=== PATIENT | female | born 1950 | race Caucasian/White ===

== ENCOUNTER 2021-05-16 09:00 | Emergency (ER) | payer MEDICARE, OTHER ==
[2021-05-16 10:23] LABS: HEMOGLOBIN 15.1 gm/dl (12.3-15.3); RED BLOOD COUNT 5.51 M/UL (4.00-5.10); WHITE BLOOD COUNT 11.3 K/UL (4.5-11.0)
[2021-05-16 10:48] LABS: BUN/CREATININE RATIO 25 (0-10)
[2021-05-16] MEDS ORDERED: FLAGYL375 MG PO (15:09)
[2021-05-16] MEDS ORDERED: ZOFRAN4 MG PO (15:09)
[2021-05-16] MEDS ORDERED: K-TAB ER10 MEQ PO (15:09)
== END 2021-05-16 16:15 | disposition home or self-care (01) ==
LOC: ER1 09:00
PROVIDERS: Physician Assistant
DX: R10.9 Unspecified abdominal pain (principal); R10.816 Epigastric abdominal tenderness; E86.0 Dehydration; E87.6 Hypokalemia; E78.5 Hyperlipidemia, unspecified; I10 Essential (primary) hypertension; Z90.710 Acquired absence of both cervix and uterus
CPT/HCPCS: 80053; 81001; 82150; 82550; 82553; 83605; 83690; 83874; 84484; 85025; 93005; 96374; 96375; 99284; J2270; J2405; J7030; Q9967

== ENCOUNTER 2021-05-23 18:18 | Inpatient (IN) | payer MEDICARE, OTHER ==
[~2021-05-23] VITALS: Ht 149.9 cm; Wt 62.6 kg
[~2021-05-23 18:18] MED LIST: FLAGYL375 MG PO; K-TAB ER10 MEQ PO; METRONIDAZOLE500 MG PO; ZOFRAN4 MG PO
[2021-05-23 19:44] LABS: HEMOGLOBIN 13.1 gm/dl (12.3-15.3); RED BLOOD COUNT 4.98 M/UL (4.00-5.10); WHITE BLOOD COUNT 11.5 K/UL (4.5-11.0)
[2021-05-23 19:53] LABS: BUN/CREATININE RATIO 19 (0-10)
[2021-05-24 06:54] LABS: HEMOGLOBIN 12.7 gm/dl (12.3-15.3); RED BLOOD COUNT 4.82 M/UL (4.00-5.10)
[2021-05-24 06:55] LABS: WHITE BLOOD COUNT 4.4 K/UL (4.5-11.0)
[2021-05-24] MEDS ORDERED: PROCHLORPERAZIN10 MG PO (18:14)
[2021-05-24] MEDS ORDERED: HYDROCHLOROTHIA25 MG PO (18:15)
[2021-05-24] MEDS ORDERED: ALENDRONATE SOD70 MG PO (18:15)
[2021-05-24] MEDS ORDERED: ZOCOR40 MG PO (18:15)
[2021-05-24] MEDS ORDERED: DAILY VALUE1 EACH PO (18:16)
[2021-05-24] MEDS ORDERED: LEVOTHYROXINE75 MCG PO (18:16)
[2021-05-24] MEDS ORDERED: LEVOCETIRIZINE D5 MG PO (18:16)
[2021-05-24] MEDS ORDERED: LINZESS72 MCG PO (18:16)
[2021-05-25 08:33] LABS: HEMOGLOBIN 10.9 gm/dl (12.3-15.3); RED BLOOD COUNT 4.07 M/UL (4.00-5.10); WHITE BLOOD COUNT 10.3 K/UL (4.5-11.0)
[2021-05-26 10:24] LABS: HEMOGLOBIN 9.7 gm/dl (12.3-15.3); RED BLOOD COUNT 3.68 M/UL (4.00-5.10)
[2021-05-26 10:29] LABS: WHITE BLOOD COUNT 13.5 K/UL (4.5-11.0)
--- NOTE | 2021-05-28 09:44 | NUR ---
dr. campbell on the floor seen patient. reported patitent breathing and high heart rate. will write order
[2021-05-28 14:15] LABS: HEMOGLOBIN 8.4 gm/dl (12.3-15.3); RED BLOOD COUNT 3.16 M/UL (4.00-5.10); WHITE BLOOD COUNT 10.1 K/UL (4.5-11.0)
--- NOTE | 2021-05-28 16:29 | NUR ---
earlier spoken and reported to jose miguel c/o dr. wilson and reported low K+ level and stated will write order. received call from dr. wilson and order received
[2021-05-29 06:40] LABS: HEMOGLOBIN 9.4 gm/dl (12.3-15.3); RED BLOOD COUNT 3.59 M/UL (4.00-5.10); WHITE BLOOD COUNT 11.7 K/UL (4.5-11.0)
[2021-05-29] MEDS ORDERED: HYDROCODON-ACE1 EAC4 PO (11:00)
--- NOTE | 2021-05-29 14:19 | NUR ---
report given to admitting nurse @ [facility].
--- NOTE | 2021-05-29 15:11 | NUR ---
called EMS and was instructed to call back in 4 hours for transport
[2021-05-29] MEDS ORDERED: PROTONIX 40 MG40 M1 PO (18:07)
[2021-05-29] MEDS ORDERED: ALDACTONE25 MG PO (18:07)
[2021-05-29] MEDS ORDERED: LASIX20 MG PO (18:07)
[2021-05-29] MEDS ORDERED: LOPRESSOR 25 MG25 MG PO ×2 (18:07→18:08)
--- NOTE | 2021-05-29 18:39 | NUR ---
attempted several times to call EMS R/T d/c cancelled with no success
--- NOTE | 2021-05-29 18:59 | NUR ---
notified [facility], notified ems cancelled discharge.
[2021-05-30 06:40] LABS: HEMOGLOBIN 9.1 gm/dl (12.3-15.3); RED BLOOD COUNT 3.44 M/UL (4.00-5.10)
[2021-05-30 07:05] LABS: WHITE BLOOD COUNT 8.3 K/UL (4.5-11.0)
--- NOTE | 2021-05-30 11:24 | NUR ---
[facility] NOTIFIED OF TRANSPORT TO [facility]. [facility] STATED THEY WOULD HAVE SOMEONE RETURN MY CALL IF TRANSPORT WAS AVAILABLE.
== END 2021-05-30 12:28 | DRG 853 ==
LOC: ER1 18:18 → M/S 22:25 → CDU 22:25 → CCU 05-24 07:23 → M/S 05-26 15:58
PROVIDERS: Internal Medicine Infectious Disease; Physician Assistant Medical; ADMIT Surgery
PROC: 0DBN0ZZ Excision of Sigmoid Colon, Open Approach (ICD-10-PCS; principal; 2021-05-24)
PROC: 0DQH0ZZ Repair Cecum, Open Approach (ICD-10-PCS; 2021-05-24)
PROC: 0D1M0Z4 Bypass Descending Colon to Cutaneous, Open Approach (ICD-10-PCS; 2021-05-25)
DX: A41.9 Sepsis, unspecified organism (principal); K63.1 Perforation of intestine (nontraumatic); J96.01 Acute respiratory failure with hypoxia; K55.9 Vascular disorder of intestine, unspecified; K91.89 Other postprocedural complications and disorders of digestive system; K56.7 Ileus, unspecified; J98.11 Atelectasis; N17.9 Acute kidney failure, unspecified; E87.2 Acidosis; Z20.822 Contact with and (suspected) exposure to COVID-19; E03.9 Hypothyroidism, unspecified; Z90.710 Acquired absence of both cervix and uterus; E78.5 Hyperlipidemia, unspecified; E87.6 Hypokalemia; F17.200 Nicotine dependence, unspecified, uncomplicated; K52.9 Noninfective gastroenteritis and colitis, unspecified; Z79.899 Other long term (current) drug therapy; I50.9 Heart failure, unspecified; I11.0 Hypertensive heart disease with heart failure; R00.1 Bradycardia, unspecified; K21.9 Gastro-esophageal reflux disease without esophagitis
CPT/HCPCS: ECHO; 36415; 71045; 80048; 80053; 81001; 83605; 83690; 83735; 83880; 84443; 85025; 85027; 85610; 86850; 86900; 86901; 87040; 93005; 93306; 96374; 97110-GP-CQ; 97162; 97530; 97530-GP-CQ; 99285; J0171; J1100; J1170; J1335; J1650; J1940; J2001; J2250; J2270; J2370; J2405; J2543; J2704; J3010; J3480; J7030; P9047; Q9967; U0002

== ENCOUNTER 2021-06-04 02:07 | Inpatient (IN) | payer MEDICARE, OTHER ==
[~2021-06-04] VITALS: Ht 149.9 cm; Wt 63.0 kg
[~2021-06-04 02:07] MED LIST changes: +ALDACTONE25 MG PO; +ALENDRONATE SOD70 MG PO; +DAILY VALUE1 EACH PO; +HYDROCHLOROTHIA25 MG PO; +HYDROCODON-ACE1 EAC4 PO; +LASIX20 MG PO; +LEVOCETIRIZINE D5 MG PO; +LEVOTHYROXINE75 MCG PO; +LINZESS72 MCG PO; +LOPRESSOR 25 MG25 MG PO; +PROCHLORPERAZIN10 MG PO; +PROTONIX 40 MG40 M1 PO; +ZOCOR40 MG PO
[2021-06-04] MEDS ORDERED: HYDROCHLOROTHIA25 MG PO (15:16)
[2021-06-04] MEDS ORDERED: HYDROCODON-ACE1 EAC2 PO (15:17)
[2021-06-04] MEDS ORDERED: MUCINEX600 MG PO (15:18)
[2021-06-04 16:32] LABS: HEMOGLOBIN 9.3 gm/dl (12.3-15.3); RED BLOOD COUNT 3.58 M/UL (4.00-5.10)
--- NOTE | 2021-06-05 03:58 | NUR ---
PATIENT HAS BEEN VERY CONFUSED, PULLED GOWN AND MONITOR WIRES OFF REPEATEDLY DURING SHIFT AND PULLED ABDOMINAL INCISION DRESSING OFF AT APPROXIMATELY 2300. DRESSING REPLACED WITH SOAKED GAUZE AND ABD PADS, PICTURE TAKEN OF WOUND. WAFFLE MATTRESS PUT ON PATIENT'S BED AND AIRED UP. PT HAS SMALL RED AREA TO COCCYX, ALLEVYN PUT ON PREVENTATIVE. PATIENT CONTINUES TO ATTEMPT TO GET UP AND HAS ASKED NUMEROUS TIMES IF STAFF WILL HELP HER GET UP TO WALK AROUND. INSTRUCTED PATIENT TO WAIT UNTIL DR KOENIG HAS SEEN HER.
[2021-06-05 04:03] LABS: RED BLOOD COUNT 3.49 M/UL (4.00-5.10); WHITE BLOOD COUNT 14.7 K/UL (4.5-11.0)
--- NOTE | 2021-06-07 12:49 | NUR ---
NOTIFIED DR. BERMEO OF PATIENTS CRITICAL POTASSIUM LAB OF 2.3. MD ORDERED TO GIVE 20 MEQ PO AND 20 MEQ IV. NOW SUPPLEMENTING K+ PER MD ORDER. WILL CONTINUE TO MONITOR PATIENT.
[2021-06-08 03:00] LABS: HEMOGLOBIN 8.4 gm/dl (12.3-15.3); RED BLOOD COUNT 3.33 M/UL (4.00-5.10); WHITE BLOOD COUNT 15.4 K/UL (4.5-11.0)
--- NOTE | 2021-06-08 10:22 | NUR ---
PATIENTS POTASSIUM IS 3.4. GAVE 20 MEQ PO PER PROTOCOL. WILL CONTINUE TO MONITOR PATIENT AND FOLLOW UP IN 3 HOURS WITH THE SECOND DOSE OF K+ 20 MEQ PO.
[2021-06-09 06:56] LABS: HEMOGLOBIN 8.3 gm/dl (12.3-15.3); RED BLOOD COUNT 3.34 M/UL (4.00-5.10); WHITE BLOOD COUNT 14.2 K/UL (4.5-11.0)
[2021-06-09] MEDS ORDERED: HYDROCODON-ACE1 EAC2 PO (16:52)
[2021-06-09] MEDS ORDERED: NYSTATIN60 GM EXT (16:52)
[2021-06-09] MEDS ORDERED: ZOSYN 3.3753.375 GM IV (16:53)
[2021-06-10 07:47] LABS: HEMOGLOBIN 7.7 gm/dl (12.3-15.3); RED BLOOD COUNT 3.07 M/UL (4.00-5.10); WHITE BLOOD COUNT 13.4 K/UL (4.5-11.0)
[2021-06-10 08:04] LABS: BUN/CREATININE RATIO 6 (0-10)
[2021-06-11 06:22] LABS: HEMOGLOBIN 8.6 gm/dl (12.3-15.3); WHITE BLOOD COUNT 14.1 K/UL (4.5-11.0)
[2021-06-11 06:23] LABS: RED BLOOD COUNT 3.46 M/UL (4.00-5.10)
[2021-06-11 07:16] LABS: BUN/CREATININE RATIO 6 (0-10)
[2021-06-12 06:15] LABS: HEMOGLOBIN 8.6 gm/dl (12.3-15.3); RED BLOOD COUNT 3.33 M/UL (4.00-5.10); WHITE BLOOD COUNT 14.4 K/UL (4.5-11.0)
[2021-06-12 06:59] LABS: BUN/CREATININE RATIO 5 (0-10)
[2021-06-12] MEDS ORDERED: ZOSYN 3.3753.375 GM IV (12:12)
== END 2021-06-12 15:54 | DRG 862 ==
LOC: PROG CARE 02:07 → M/S 14:45 → PROG CARE 14:45 → M/S 06-06 21:46
PROVIDERS: Internal Medicine; Physician Assistant Medical; ADMIT Internal Medicine
DX: T81.43XA Infection following a procedure, organ and space surgical site, initial encounter (principal); J96.21 Acute and chronic respiratory failure with hypoxia; G93.41 Metabolic encephalopathy; Z20.822 Contact with and (suspected) exposure to COVID-19; K94.02 Colostomy infection; J98.11 Atelectasis; K68.11 Postprocedural retroperitoneal abscess; Y83.8 Other surgical procedures as the cause of abnormal reaction of the patient, or of later complication, without mention of misadventure at the time of the procedure; Y73.3 Surgical instruments, materials and gastroenterology and urology devices (including sutures) associated with adverse incidents; F03.90 Unspecified dementia, unspecified severity, without behavioral disturbance, psychotic disturbance, mood disturbance, and anxiety; E03.9 Hypothyroidism, unspecified; E78.5 Hyperlipidemia, unspecified; F17.210 Nicotine dependence, cigarettes, uncomplicated; E87.6 Hypokalemia; L23.9 Allergic contact dermatitis, unspecified cause; E83.42 Hypomagnesemia
CPT/HCPCS: 36415; 70450; 71045; 80048; 80053; 81001; 83540; 83550; 83735; 84132; 84439; 84443; 85025; 85027; 87040; 87086; 97110; 97110-GP-CQ; 97116; 97162; 97166; 97530; 97530-GP-CQ; J2270; J2543; J3475; J3480; J3486; J7030; Q9967; U0002

== ENCOUNTER 2021-07-30 11:51 | Inpatient (IN) | payer MEDICARE, OTHER ==
[~2021-07-30] VITALS: Ht 149.9 cm; Wt 62.2 kg
[~2021-07-30 11:51] MED LIST changes: +HYDROCODON-ACE1 EAC2 PO; +MUCINEX600 MG PO; +NYSTATIN60 GM EXT; +ZOSYN 3.3753.375 GM IV
[2021-07-30 13:40] LABS: HEMOGLOBIN 9.8 gm/dl (12.3-15.3); RED BLOOD COUNT 3.87 M/UL (4.00-5.10); WHITE BLOOD COUNT 10.7 K/UL (4.5-11.0)
[2021-07-30 14:04] LABS: BUN/CREATININE RATIO 20 (0-10)
[2021-07-30] MEDS ORDERED: POTASSIUM CHLO20 ME2 PO (14:10)
[2021-07-30] MEDS ORDERED: MIRTAZAPINE15 MG PO (14:10)
[2021-07-30] MEDS ORDERED: HYDROCHLOROTHIA25 MG PO (14:10)
[2021-07-31 06:38] LABS: HEMOGLOBIN 7.9 gm/dl (12.3-15.3); RED BLOOD COUNT 3.1 M/UL (4.00-5.10); WHITE BLOOD COUNT 11.4 K/UL (4.5-11.0)
[2021-07-31 06:40] LABS: BUN/CREATININE RATIO 15 (0-10)
--- NOTE | 2021-07-31 08:12 | NUR ---
STATES TO GIVE THE ENEMA VIA RECTAL DESPITE PATIENT HAIVNG COLOSTOMY.
[2021-07-31 18:28] LABS: HEMOGLOBIN 13.9 gm/dl (12.3-15.3); RED BLOOD COUNT 5.28 M/UL (4.00-5.10); WHITE BLOOD COUNT 27.9 K/UL (4.5-11.0)
[2021-07-31 18:39] LABS: BUN/CREATININE RATIO 11 (0-10)
[2021-08-01 08:18] LABS: HEMOGLOBIN 12.3 gm/dl (12.3-15.3); RED BLOOD COUNT 4.59 M/UL (4.00-5.10); WHITE BLOOD COUNT 26.4 K/UL (4.5-11.0)
--- NOTE | 2021-08-02 06:18 | NUR ---
CRITICAL LACTIC 31.[address] SNACHEZ. PT ALREADY RECEIVING D5 @ 1OOML/HR, VANC AND ZOSYN. NO NEW ORDERS
[2021-08-02 07:05] LABS: RED BLOOD COUNT 3.41 M/UL (4.00-5.10); WHITE BLOOD COUNT 13.8 K/UL (4.5-11.0)
--- NOTE | 2021-08-02 10:15 | NUR ---
NG TUBE D/C THIS TIME AT THIS TIME BY . PATIENT TOLERATED WELL.
--- NOTE | 2021-08-02 17:51 | NUR ---
DURING CHANGING THE WOUND VAC PER PROVIDER ORDER, PATIENT IS NOTED TO HAVE A LARGE AMOUNT OF STOOL IN THE ABDOMINAL WOUND. WAS CALLED AND SHE REPORTED TO THE BEDSIDE AND ASSESSED THE PATIENT. THE MIDLINE ABDOMINAL INCISION EDGES ARE SEPERATED AND IS NOTED TO HAVE A MODERATE AMOUNT OF STOOL LIKE DRAINAGE THAT IS COMING OUT OF THE BASE OF THE WOUND WALL. PACKED THE WOUND WITH DRY GAUZE AND TOLD MYSELF AND POLINA WOMACK TO DRESS WOUND WITH ABDOMINAL PADS AND TAPE AND TO REINFORCE NEEDED. PATIENT TOLERATED WELL. PATIENT STATES THAT SHE DOES HAVE PAIN. PROVIDER STATED NOT TO RESUME WOUND VAC AND TO CHANGE DRESSING NEEDED IF IT BECAME SATURATED. PATIENT EDUCATED ON PLAN OF CARE. PATIENT CLEANED AND TURNED. PATIENT ASKED FOR PAIN MEDICATION AND IT WAS PROVIDED. NO NEW NEEDS NOTED. VITALS STABLE.
[2021-08-03 03:21] LABS: HEMOGLOBIN 7.9 gm/dl (12.3-15.3)
[2021-08-03 03:27] LABS: RED BLOOD COUNT 3.02 M/UL (4.00-5.10); WHITE BLOOD COUNT 9.6 K/UL (4.5-11.0)
--- NOTE | 2021-08-03 14:18 | NUR ---
DRESSING TO ABDOMINAL WOUND CHANGED FOR THE 2ND TIME TODAY. THERRE IS A COPIOUS AMOUNT OF STOOL DRAINING AND SATURATING PADS TO THE ABDOMEN. PATIENT TOLERATES DRESSING CHANGES WELL.
[2021-08-04 06:25] LABS: HEMOGLOBIN 9.3 gm/dl (12.3-15.3); WHITE BLOOD COUNT 7.4 K/UL (4.5-11.0)
[2021-08-04 06:26] LABS: RED BLOOD COUNT 3.57 M/UL (4.00-5.10)
[2021-08-04 08:20] LABS: BUN/CREATININE RATIO 9 (0-10)
[2021-08-05 06:28] LABS: HEMOGLOBIN 10.2 gm/dl (12.3-15.3); RED BLOOD COUNT 3.84 M/UL (4.00-5.10); WHITE BLOOD COUNT 9.1 K/UL (4.5-11.0)
[2021-08-05 06:45] LABS: BUN/CREATININE RATIO 7 (0-10)
[2021-08-06 02:47] LABS: HEMOGLOBIN 10.1 gm/dl (12.3-15.3); RED BLOOD COUNT 3.77 M/UL (4.00-5.10); WHITE BLOOD COUNT 8.6 K/UL (4.5-11.0)
[2021-08-06 06:47] LABS: BUN/CREATININE RATIO 5 (0-10)
[2021-08-07 04:40] LABS: HEMOGLOBIN 10.4 gm/dl (12.3-15.3); RED BLOOD COUNT 3.93 M/UL (4.00-5.10); WHITE BLOOD COUNT 9.7 K/UL (4.5-11.0)
[2021-08-07 05:09] LABS: BUN/CREATININE RATIO 5 (0-10)
[2021-08-08 02:47] LABS: HEMOGLOBIN 10.1 gm/dl (12.3-15.3); RED BLOOD COUNT 3.78 M/UL (4.00-5.10); WHITE BLOOD COUNT 9.9 K/UL (4.5-11.0)
[2021-08-08 03:07] LABS: BUN/CREATININE RATIO 6 (0-10)
[2021-08-11 03:17] LABS: BUN/CREATININE RATIO 7 (0-10)
[2021-08-12 06:58] LABS: HEMOGLOBIN 11.2 gm/dl (12.3-15.3); RED BLOOD COUNT 4.27 M/UL (4.00-5.10)
[2021-08-12 07:24] LABS: BUN/CREATININE RATIO 6 (0-10)
[2021-08-13 03:08] LABS: HEMOGLOBIN 11.1 gm/dl (12.3-15.3); RED BLOOD COUNT 4.17 M/UL (4.00-5.10); WHITE BLOOD COUNT 8.9 K/UL (4.5-11.0)
[2021-08-13 03:50] LABS: BUN/CREATININE RATIO 7 (0-10)
--- NOTE | 2021-08-13 07:16 | NUR ---
dr. campbell on the floor and gave report and received order
[2021-08-13] MEDS ORDERED: MYCOSTATIN100000 UTS PO (09:41)
[2021-08-13] MEDS ORDERED: HYDROCODON-ACE1 EAC2 PO (09:41)
[2021-08-13] MEDS ORDERED: SYNTHROID50 MCG PO (09:53)
--- NOTE | 2021-08-13 13:44 | NUR ---
report given to admitting nurse Abi.
== END 2021-08-13 17:28 | DRG 329 ==
LOC: ER1 11:51 → CDU 13:37 → M/S 13:37
PROVIDERS: Internal Medicine; Nurse Practitioner; Physician Assistant Medical; Surgery; ADMIT Internal Medicine
PROC: 0DNU0ZZ Release Omentum, Open Approach (ICD-10-PCS; 2021-07-31)
PROC: 0DBL0ZZ Excision of Transverse Colon, Open Approach (ICD-10-PCS; 2021-07-31)
PROC: 0W9G00Z Drainage of Peritoneal Cavity with Drainage Device, Open Approach (ICD-10-PCS; 2021-07-31)
PROC: 02HV33Z Insertion of Infusion Device into Superior Vena Cava, Percutaneous Approach (ICD-10-PCS; 2021-08-05)
PROC: B548ZZA Ultrasonography of Superior Vena Cava, Guidance (ICD-10-PCS; 2021-08-05)
PROC: 30233N1 Transfusion of Nonautologous Red Blood Cells into Peripheral Vein, Percutaneous Approach (ICD-10-PCS; principal; 2021-08-07)
DX: K94.02 Colostomy infection (principal); A41.9 Sepsis, unspecified organism; K63.2 Fistula of intestine; N17.9 Acute kidney failure, unspecified; Z20.822 Contact with and (suspected) exposure to COVID-19; D62 Acute posthemorrhagic anemia; E46 Unspecified protein-calorie malnutrition; E87.2 Acidosis; E87.0 Hyperosmolality and hypernatremia; J96.10 Chronic respiratory failure, unspecified whether with hypoxia or hypercapnia; T81.30XA Disruption of wound, unspecified, initial encounter; K66.0 Peritoneal adhesions (postprocedural) (postinfection); I10 Essential (primary) hypertension; E87.6 Hypokalemia; E03.9 Hypothyroidism, unspecified; E78.5 Hyperlipidemia, unspecified; R13.10 Dysphagia, unspecified; E86.0 Dehydration; Y83.9 Surgical procedure, unspecified as the cause of abnormal reaction of the patient, or of later complication, without mention of misadventure at the time of the procedure; Z87.19 Personal history of other diseases of the digestive system; Z87.891 Personal history of nicotine dependence; Z90.710 Acquired absence of both cervix and uterus; Z68.27 Body mass index [BMI] 27.0-27.9, adult
CPT/HCPCS: 36415; 36430; 71045; 80048; 80053; 80202; 82962; 83540; 83550; 83605; 83735; 83880; 84100; 84132; 84439; 84443; 85018; 85025; 85027; 86850; 86900; 86901; 86920; 87081; 92610; 93005; 96365; 97110-GP-CQ; 97116-GP-CQ; 97162; 97166; 97530-GP-CQ; 97535; 99285; A6212; C1751; J1170; J1650; J2270; J2370; J2405; J2543; J2704; J3010; J3370; J3480; J7030; J7040; J7070; J7120; P9016; U0002